=== PATIENT | male | born 1955 | race Caucasian/White ===

== ENCOUNTER 2017-01-05 19:16 | Inpatient (IN) | payer SELFPAY ==
[~2017-01-05] VITALS: Ht 167.6 cm; Wt 54.0 kg
[~2017-01-05 19:16] MED LIST: NO MEDS
[2017-01-05 19:53] VITALS: BP 150/78
--- NOTE | 2017-01-05 20:33 | NUR ---
PT TAKEN TO OF2
--- NOTE | 2017-01-05 20:43 | NUR ---
PT MOVED TO BED 3
--- NOTE | 2017-01-05 20:44 | NUR ---
Dr. Doherty evaluating patient at bedside.
--- NOTE | 2017-01-05 20:45 | NUR ---
61 Y/O M W/C/O PAIN TO L GREAT TOE X 3 DAYS, R/T DIABETIC ULCER. TISSUE AND REDNESS NOTED. DENIES ANY FEVER OR CHILLS. MED HX DM. ER MADE AWARE.
[2017-01-05] MEDS ORDERED: NACL 0.9% 1,000 ML IV SCH (20:52)
[2017-01-05] MEDS ORDERED: INSULIN HUMAN REGULAR 100 UNITS/ML 10 ML VIAL IVP ONE ×2 (20:55→21:25)
[2017-01-05] MEDS ORDERED: AMPICILLIN/SULBACTAM 3 GM VIAL IM ONE (20:55)
[2017-01-05] MEDS ORDERED: AMPICILLIN/SULBACTAM 3 GM in NACL 0.9% 100 ML IV ONE (21:10)
[2017-01-05 21:17] LABS: BLOOD GAS BASE EXCESS 3.1 mmol/L (-2.0-2.0); BLOOD GAS HCO3 27.9 mmol/L; BLOOD GAS PCO2 43.4 mmHg (20-50); BLOOD GAS PH 7.426 (7.35-7.45); BLOOD GAS PO2 78.9 mmHg
[2017-01-05 21:18] LABS: BLOOD GAS O2 SAT% 95.3 % (92.0-98.5)
[2017-01-05 21:36] LABS: BASOPHILS # (AUTO) 0.1 K/uL (0.00-0.22); BASOPHILS % (AUTO) 1.4 % (0.0-2.0); EOSINOPHILS # (AUTO) 0.4 K/uL (0-0.4); EOSINOPHILS % (AUTO) 3.5 % (0.0-4.0); HEMATOCRIT 43.2 % (36-52); HEMOGLOBIN 14.1 g/dL (12.0-18.0); LYMPHOCYTES # (AUTO) 2.7 K/uL (2.0-11.5); LYMPHOCYTES % (AUTO) 26.5 % (20.5-51.1); MEAN CORPUSCULAR HEMOGLOBIN 28 pg (27-31); MEAN CORPUSCULAR HGB CONC 33 g/dL (33-37); MEAN CORPUSCULAR VOLUME 87 fL (80-94); MONOCYTES # (AUTO) 0.6 K/uL (0.8-1.0); MONOCYTES % (AUTO) 5.6 % (1.7-9.3); NEUTROPHILS # (AUTO) 6.3 K/uL (1.8-7.7); PLATELET COUNT (AUTO) 295 K/uL (140-450); RED CELL DISTRIBUTION WIDTH 11.6 % (11.6-13.7); WHITE BLOOD COUNT (AUTO) 10.1 K/uL (4.8-10.8)
[2017-01-05] MEDS ORDERED: METF500T PO (21:46)
[2017-01-05 21:48] LABS: ANION GAP 10.6 (8-16); CALCIUM 10.1 mg/dL (8.5-10.1); CARBON DIOXIDE 33.3 mmol/L (21-32); CREATININE 0.9 mg/dL (0.6-1.3); POTASSIUM 4.9 mmol/L (3.5-5.1)
[2017-01-05 21:55] LABS: ALBUMIN 3.9 g/dL (3.4-5.0); TOTAL BILIRUBIN 0.3 mg/dL (0.0-1.0); TOTAL PROTEIN, SERUM 8.7 g/dL (6.4-8.2)
[2017-01-05 21:57] LABS: PARTIAL THROMBOPLASTIN TIME 26.3 secs (22-35.6); PROTHROMBIN TIME 9.8 secs (10.8-13.4)
[2017-01-05 22:00] LABS: LACTIC ACID 0.6 mmol/L (0.4-2.0)
--- NOTE | 2017-01-05 22:27 | NUR ---
[place] [facility]ited to [place]LEMETRY. Will go to [id number]. Belongings list completed. Report to DAYSI WEBBER.
--- NOTE | 2017-01-05 22:27 | NUR ---
Patient noted to have existing wounds upon arrival to ER. Photos taken of wound and placed in chart. Wound covered with dressing. Physician informed.
--- NOTE | 2017-01-05 22:29 | NUR ---
PT TRASFERRED TO TELEMETRY VIA [employer]. ACCOMPANIED BY RN AND EMT.
--- NOTE | 2017-01-05 22:35 | NUR ---
ADMITTED A PATIENT FROM ER, ACCOMPANIED BY ER NURSE, TRANSPORTED VIA GURNEY. PATIENT IS AAOX4, DENIES PAIN, TELE MONITOR ATTACHED. ON ROOM AIR, HAS NO S/S OF RESPIRATORY DISTRESS/DISCOMFORT NOTED. WOUND ASSESSMENT DONE.IV SITE IS PATENT AND INTACT. ID BAND UPDATED, ROOM ORIENTATION DONE, PLAN OF CARE DISCUSSED, VERBALIZED UNDERSTANDING. SAFETY MEASURES INITIATED, CALL LIGHT WITHIN REACH. WILL CONTINUE TO MONITOR.
[2017-01-05 22:48] VITALS: BP 125/59
[2017-01-05] MEDS ORDERED: ONDANSETRON 4 MG/2 ML VIAL IVP PRN (23:25)
[2017-01-05] MEDS ORDERED: ALBUTEROL 0.083% 2.5 MG/3 ML NEBU INH PRN (23:25)
[2017-01-05] MEDS ORDERED: HYDROcodone/APAP 5/325 MG 1 TAB TAB PO PRN (23:25)
[2017-01-05] MEDS ORDERED: MORPHINE SULFATE 2 MG/ML SYR IVP PRN (23:25)
[2017-01-05] MEDS ORDERED: ZOLPIDEM 5 MG TAB PO PRN (23:25)
[2017-01-05 23:55] LABS: CHOL/HDL RATIO 5.3 (1-4.5); FREE T4 (FREE THYROXINE) 1.19 ng/dL (0.76-1.46); THYROID STIMULATING HORMONE 1.55 uIU/mL (0.34-3.76)
[2017-01-06] VITALS: BP 119/70
--- NOTE | 2017-01-06 01:05 | NUR ---
PT SLEEPING, HAS NO S/S OF RESPIRATORY DISTRESS/DISCOMFORT. CALL LIGHT WITHIN REACH.
[2017-01-06] MEDS: NACL 0.9% 1,000 ML IV SCH ×2 (01:22→16:50)
[2017-01-06] MEDS ORDERED: CLINDAMYCIN 600 MG/4 ML VIAL ONE (01:59)
--- NOTE | 2017-01-06 02:36 | NUR ---
EYES CLOSED, RESTING QUIETLY, BREATHING EVEN AND UNLABORED. IV FLUID INFUSING WELL. CALL LIGHT WITHIN REACH.
[2017-01-06 04:00] VITALS: BP 122/76
--- NOTE | 2017-01-06 04:00 | NUR ---
PT SLEEPING, EASILY AROUSABLE BY HIS NAME. V/S CHECKED AND STABLE. HAS NO COMPLAIN OF PAIN. ON ROOM AIR, NO S/S OF RESPIRATORY DISTRESS/DISCOMFORT NOTED.
[2017-01-06] MEDS: CLINDAMYCIN 600 MG in DEXTROSE 5% 50 ML IV SCH ×3 (04:42→20:14)
--- NOTE | 2017-01-06 07:30 | NUR ---
ENDORSED TO DAY SHIFT NURSE. PT IN STABLE CONDITION.
--- NOTE | 2017-01-06 07:32 | NUR ---
RECEIVED REPORT FROM NIGHT RN. PT RESTING IN BED. AAOX4. NO S/S OF ACUTE DISTRESS. IV SITE PATENT AND INTACT. PT DENIES PAIN. DIABETIC ULCER TO LEFT BIG TOE NOTED AND CARMEL. NO DRAINAGE NOTED. TELE BOX IN PLACE. CALL LIGHT WITHIN REACH. SAFETY MEASURES ENSURED. WILL CONTINUE TO MONITOR.
[2017-01-06 07:46] VITALS: BP 143/79
--- NOTE | 2017-01-06 07:55 | NUR ---
PT REFUSED TO PUT ON SCD'S. PT EDUCATED ON IMPORTANCE OF SCD'S WHEN NOT AMBULATING REGULARLY. PT VERBALIZED UNDERSTANDING, BUT STILL REFUSED.
[2017-01-06] MEDS: metFORMIN 500 MG TAB PO SCH (08:06)
--- NOTE | 2017-01-06 08:33 | NUR ---
ENDORSED PLAN OF CARE TO DAY RN. PT REMAINS IN STABLE CONDITION.
--- NOTE | 2017-01-06 08:50 | NUR ---
patient alert oriented, denies any pain, sitting comfortably in bed.
--- NOTE | 2017-01-06 09:10 | NUR ---
PATIENT HAS BEEN SCREENED AND CATEGORIZED HIGH NUTRITION RISK. PATIENT WILL BE SEEN WITHIN 1-2 DAYS OF ADMISSION. 01/06/17-01/07/[address]
[2017-01-06] MEDS ORDERED: DEXTROSE 50% 50 ML SYR IVP PRN (10:10)
[2017-01-06] MEDS ORDERED: ZOLPIDEM 5 MG TAB PO PRN (10:10)
[2017-01-06] MEDS ORDERED: ATORVASTATIN 20 MG TAB PO SCH (10:30)
[2017-01-06 12:00] VITALS: BP 137/76
[2017-01-06] MEDS: BLOOD GLUCOSE MONITORING 1 DEV DEV FS SCH ×3 (12:03→20:35)
[2017-01-06] MEDS: INSULIN LISPRO SLIDING SCALE 100 UNITS/ML VIAL SUBQ PRN ×3 (12:03→20:15)
--- NOTE | 2017-01-06 12:39 | NUR ---
Excision debridement left great toe done by commercial illustrator at bedside, silvasorbe gel and dressing applied, wound culture collectec. Per MD change dressing daily.
--- NOTE | 2017-01-06 12:39 | NUR ---
01/06/17 RD INITIAL ASSESSMENT COMPLETED PLEASE REFER TO NUTRITION ASSESSMENT UNDER CARE ACTIVITY FOR ESTIMATED NUTRITIONAL NEEDS. 1. CHANGE DIET TO: 75 GM CONSISTENT CARBOHYDRATE DIET 2. ADD VITAMIN C SUPPLEMENT 100-200 MG/DAILY 3. RD TO FOLLOW-UP 2-3 DAYS; HIGH RISK TRAVIS BEASLEY, [place]
[2017-01-06 16:38] VITALS: BP 122/75
[2017-01-06 17:32] LABS: APPEARANCE,URINE CLEAR (CLEAR); BILIRUBIN,URINE NEGATIVE (NEGATIVE); BLOOD, URINE NEGATIVE (NEGATIVE); COLOR,URINE YELLOW (YELLOW); LEUKOCYTE ESTERASE ,URINE NEGATIVE (NEGATIVE); NITRITE, URINE NEGATIVE (NEGATIVE); PROTEIN,URINE NEGATIVE (NEGATIVE); UGLUCOSE 3+ (NEGATIVE); UROBILINOGEN,URINE 0.2 EU/dL (0.2 - 1)
[2017-01-06 17:39] LABS: AMPHETAMINE, URINE NEG. ng/ml (NEG <=1000); BARBITURATE, URINE NEG. ng/ml (NEG <=200); BENZODIAZEPINE, URINE NEG. ng/mL (NEG <=200); CANNABINOID, URINE NEG. ng/mL (NEG <=50); COCAINE, URINE NEG. ng/mL (NEG <=300); OPIATE, URINE NEG. ng/mL (NEG <=2000); PHENCYCLIDINE SCREEN,URINE NEG. ng/mL (NEG <=25)
[2017-01-06 17:42] LABS: BACTERIA,URINE RARE /HPF (None Seen); RBC,URINE 0-3 /HPF (0-5); SQUAMOUS EPITHELIAL CELL,UR 0-3 /LPF (0-3 (FEW)); WBC,URINE 0-3 /HPF (0-5)
--- NOTE | 2017-01-06 19:19 | NUR ---
ENDORSED PLAN OF CARE OF NIGHT RN.
--- NOTE | 2017-01-06 19:20 | NUR ---
RECEIVED PT AWAKE ON BED, DENIES ANY PAIN, VITAL SIGNS STABLE, LEFT GREAT TOE DRESSING DRY AND INTACT, IVF INFUSING WELL, PLAN OF CARE DISCUSSED, SAFETY MEASURES IN PLACE, CALL LIGHT WITHIN REACH.
[2017-01-06 20:00] VITALS: BP 112/66
--- NOTE | 2017-01-06 20:45 | NUR ---
BLOOD SUGAR CHECKED WITH 234 RESULT, COVERAGE GIVEN, SNACK PROVIDED, DUE IV ANTIBIOTIC ADMINISTERED, ALL NEEDS ATTENDED.
--- NOTE | 2017-01-06 23:40 | NUR ---
PT STILL AWAKE, VITAL SIGNS STABLE, AMBIEN PO GIVEN PRN, DENIES ANY PAIN, IVF INFUSING WELL, CONTINUE TO MONITOR CLOSELY.
[2017-01-07] VITALS: BP 120/71
[2017-01-07 04:00] VITALS: BP 116/62
--- NOTE | 2017-01-07 04:00 | NUR ---
SLEEPING, EASILY AROUSABLE, VITAL SIGNS STABLE, DENIES ANY PAIN, MONITORED CLOSELY.
[2017-01-07] MEDS: CLINDAMYCIN 600 MG in DEXTROSE 5% 50 ML IV SCH ×2 (04:19→12:30)
[2017-01-07] MEDS: INSULIN LISPRO SLIDING SCALE 100 UNITS/ML VIAL SUBQ PRN ×2 (05:59→12:30)
--- NOTE | 2017-01-07 06:10 | NUR ---
PT AMBULATED TO BR WITH STANDBY ASSIST, BLOOD SUGAR CHECKED WITH 222 RESULT, COVERAGE GIVEN, DRESSING TO LEFT GREAT TOE DRY AND INTACT, DENIES ANY PAIN, IVF INFUSING WELL.
[2017-01-07 06:18] LABS: BASOPHILS # (AUTO) 0.2 K/uL (0.00-0.22); BASOPHILS % (AUTO) 1.6 % (0.0-2.0); EOSINOPHILS # (AUTO) 0.4 K/uL (0-0.4); EOSINOPHILS % (AUTO) 3.6 % (0.0-4.0); HEMATOCRIT 37.4 % (36-52); LYMPHOCYTES % (AUTO) 30.9 % (20.5-51.1); MEAN CORPUSCULAR HEMOGLOBIN 29 pg (27-31); MEAN CORPUSCULAR HGB CONC 35 g/dL (33-37); MEAN CORPUSCULAR VOLUME 84 fL (80-94); MONOCYTES # (AUTO) 0.9 K/uL (0.8-1.0); NEUTROPHILS # (AUTO) 5.3 K/uL (1.8-7.7); NEUTROPHILS % (AUTO) 54.9 % (42.2-75.2); PLATELET COUNT (AUTO) 279 K/uL (140-450); RED BLOOD CELL COUNT(AUTO) 4.45 MIL/uL (4.20-6.10); RED CELL DISTRIBUTION WIDTH 11.6 % (11.6-13.7); WHITE BLOOD COUNT (AUTO) 9.8 K/uL (4.8-10.8)
[2017-01-07] MEDS: BLOOD GLUCOSE MONITORING 1 DEV DEV FS SCH ×2 (06:34→11:53)
[2017-01-07] MEDS: NACL 0.9% 1,000 ML IV SCH (07:02)
--- NOTE | 2017-01-07 07:10 | NUR ---
PT AWAKE, NO SIGNS OF DISTRESS, REPORT GIVEN TO KARINE TAVAREZ FOR CONTINUITY OF CARE.
--- NOTE | 2017-01-07 07:10 | NUR ---
RECEIVED PATIENT REPORT AT BEDSIDE. PATIENT AWAKE, ALERT, AND ORIENTED. NO S/S OF DISTRESS NOTED. NO C/O PAIN AT THIS TIME. DRESSING NOTED TO THE LEFT BIG TOE. DRESSING CLEAN, DRY AND INTACT. IV LINE NOTED TO THE LEFT FOREARM WITH IVF INFUSING WELL. PATIENT ON TELE MONITORING. BED LOWERED WITH CALL LIGHT WITHIN REACH. WILL CONTINUE TO MONITOR
[2017-01-07 07:17] LABS: ANION GAP 11.5 (8-16); CALCIUM 8.9 mg/dL (8.5-10.1); CARBON DIOXIDE 28.5 mmol/L (21-32); CREATININE 0.8 mg/dL (0.6-1.3)
[2017-01-07 07:29] LABS: MAGNESIUM 1.8 mg/dL (1.8-2.4); PHOSPHORUS 3.5 mg/dL (2.5-4.9)
[2017-01-07 07:48] VITALS: BP 128/76
[2017-01-07] MEDS: metFORMIN 500 MG TAB PO SCH (08:44)
[2017-01-07] MEDS ORDERED: ATORVASTATIN 20 MG TAB PO SCH (09:00)
[2017-01-07] MEDS ORDERED: ASCORBIC ACID 500 MG TAB PO SCH (09:00)
--- NOTE | 2017-01-07 09:00 | NUR ---
ADMINISTERED DUE MEDS. PATIENT TOLERATED WELL
[2017-01-07 11:17] LABS: HEMOGLOBIN A1C 14.2 % (4.8-5.6); T4 (THYROXINE) 6.5 ug/dL (4.5 - 12.0)
[2017-01-07 12:00] VITALS: BP 129/79
--- NOTE | 2017-01-07 13:30 | NUR ---
DRESSING ON THE LEFT BIG TOE CHANGED. PICTURES TAKEN. PICTURE FILED IN THE CHART
[2017-01-07] MEDS ORDERED: CLIN300C2 PO (15:47)
[2017-01-07] MEDS ORDERED: ASPI81EC98 PO (15:47)
[2017-01-07] MEDS ORDERED: ATOR20TA40 PO (15:47)
[2017-01-07] MEDS ORDERED: LACT1.4C PO (15:47)
[2017-01-07] MEDS ORDERED: METF1000 PO (15:56)
[2017-01-07] MEDS ORDERED: GLIP5TER PO (15:57)
[2017-01-07 16:00] VITALS: BP 114/72
[2017-01-07] MEDS ORDERED: PNEUMOCOCCAL VACCINE 23 MCG/0.5 ML VIAL IMVAC SCH (16:05)
--- NOTE | 2017-01-07 16:41 | NUR ---
PATIENT DISCHARGED TO HOME. DISCHARGE INSTRUCTIONS AND DISCHARGE PRESCRIPTIONS GIVEN. PATIENT VERBALIZED UNDERSTANDING. IV LINE DISCONTINUED, TELE LEADS TAKEN OFF. PATIENT SIGNED ALL OF HIS DISCHARGE PAPERS. PATIENT LEFT WITH ALL HIS BELONGINGS AND DISCHARGE PAPERS. PATIENT LEFT IN STABLE CONDITION
== END 2017-01-07 16:50 | disposition home or self-care (01) | DRG 624 ==
LOC: MED 19:16 → MTU 22:09
PROVIDERS: ADMIT Family Medicine; ATTEND Family Medicine
PROC: 0JBR0ZZ Excision of Left Foot Subcutaneous Tissue and Fascia, Open Approach (ICD-10-PCS; principal; 2017-01-06)
PROC: 3E0234Z Introduction of Serum, Toxoid and Vaccine into Muscle, Percutaneous Approach (ICD-10-PCS; 2017-01-07)
DX: E11.621 Type 2 diabetes mellitus with foot ulcer (principal); E11.40 Type 2 diabetes mellitus with diabetic neuropathy, unspecified; E11.65 Type 2 diabetes mellitus with hyperglycemia; L97.529 Non-pressure chronic ulcer of other part of left foot with unspecified severity; N17.0 Acute kidney failure with tubular necrosis; E78.5 Hyperlipidemia, unspecified; E78.2 Mixed hyperlipidemia; I70.209 Unspecified atherosclerosis of native arteries of extremities, unspecified extremity; I10 Essential (primary) hypertension; Z83.3 Family history of diabetes mellitus; Z82.3 Family history of stroke; Z23 Encounter for immunization
CPT/HCPCS: 36415; 36600; 71010; 73630; 80048; 80053; 80305; 81001; 82550; 82553; 82803; 82948; 83036; 83605; 83735; 83874; 83880; 84100; 84436; 84439; 84443; 84479; 84484; 85025; 85610; 85730; 87040; 87070; 87075; 87081; 87086; 87186; 90471; 90715; 90732; 93005; 93925; 93970; 96361; 96374; 96375; 99285; J0295; J1815; J3490; J7030; J7060; Q0092

== ENCOUNTER 2017-03-02 21:41 | Emergency (ER) | payer OTHER ==
[~2017-03-02] VITALS: Ht 167.6 cm; Wt 58.5 kg
[~2017-03-02 21:41] MED LIST changes: +ASPI81EC98 PO; +ATOR20TA40 PO; +CLIN300C2 PO; +GLIP5TER PO; +LACT1.4C PO; +METF1000 PO; -NO MEDS
[2017-03-02 21:44] VITALS: BP 141/77
--- NOTE | 2017-03-02 22:18 | NUR ---
TO ER OF1
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
[2017-03-02] MEDS ORDERED: HYDROcodone/APAP 5/325 MG 1 TAB TAB PO ONE (22:40)
[2017-03-02] MEDS ORDERED: KETOROLAC 30 MG/ML VIAL IM ONE (22:40)
--- NOTE | 2017-03-02 22:48 | NUR ---
PT TAKEN TO CT VIA W/C ACCOMPANIED BY EDUCATIONAL ASSISTANT TEACHER.
--- NOTE | 2017-03-03 00:05 | NUR ---
Patient discharged with v/s stable. Written and verbal after care instructions given and explained. Patient alert, oriented and verbalized understanding of instructions. Ambulatory with steady gait. All questions addressed prior to discharge. ID band removed. Patient advised to follow up with PMD. Rx of NORCO 5*325 MG, NAPROSYN 500 MG given. Patient educated on indication of medication including possible reaction and side effects. Opportunity to ask questions provided and answered.
[2017-03-03 00:22] VITALS: BP 126/72
== END 2017-03-03 00:05 | disposition home or self-care (01) ==
LOC: MED 21:41
DX: S16.1XXA Strain of muscle, fascia and tendon at neck level, initial encounter (principal); E11.9 Type 2 diabetes mellitus without complications; V43.62XA Car passenger injured in collision with other type car in traffic accident, initial encounter; Y93.I9 Activity, other involving external motion; Y92.488 Other paved roadways as the place of occurrence of the external cause; Y99.8 Other external cause status
CPT/HCPCS: 72125; 96372; 99284; J1885

== ENCOUNTER 2017-05-27 16:01 | Inpatient (IN) | payer OTHER ==
[~2017-05-27] VITALS: Ht 167.6 cm; Wt 57.6 kg
[2017-05-27 16:09] VITALS: BP 118/63
--- NOTE | 2017-05-27 16:24 | NUR ---
PATIENT TO OF3 AT THIS TIME.
--- NOTE | 2017-05-27 16:25 | NUR ---
PATIENT PRESENTS TO ED WITH C/O LEFT FOOT PAIN . PT STATES THE PAIN STARTED GRADUALLY OVER THE PAST WEEK AND HIS NOTED HIS 5TH TOE WAS TURNING BLACK THIS AM . DENIES N/V/D; EXTENSIVE ECCHYMOSIS NOTED TO LEFT FOOT, W/5TH TOE DEEP PURPLE/BLACK; AAOX4 WITH EVEN AND STEADY GAIT; LUNGS CLEAR BL; HR EVEN AND REGULAR; PT DENIES ANY FEVER, CP, SOB, OR COUGH AT THIS TIME; PATIENT STATES PAIN OF 10/10 AT THIS TIME; VSS; PATIENT POSITIONED FOR COMFORT; HOB ELEVATED; BEDRAILS UP X2; BED DOWN. ER MD MADE AWARE OF PT STATUS.
[2017-05-27] MEDS ORDERED: NACL 0.9% 1,000 ML IV ONE ×2 (17:22→18:10)
[2017-05-27] MEDS ORDERED: PIPERACILLIN/TAZOBACTAM 3.375 GM in DEXTROSE 5% 50 ML IV ONE (17:25)
[2017-05-27] MEDS ORDERED: CLINDAMYCIN 600 MG in DEXTROSE 5% 50 ML IV ONE (17:25)
[2017-05-27 17:44] LABS: HEMATOCRIT 38.2 % (36-52); HEMOGLOBIN 12.6 g/dL (12.0-18.0); MEAN CORPUSCULAR HEMOGLOBIN 28 pg (27-31); MEAN CORPUSCULAR HGB CONC 33 g/dL (33-37); MEAN CORPUSCULAR VOLUME 85 fL (80-94); PLATELET COUNT (AUTO) 317 K/uL (140-450); RED CELL DISTRIBUTION WIDTH 11.6 % (11.6-13.7); WHITE BLOOD COUNT (AUTO) 18.2 K/uL (4.8-10.8)
[2017-05-27] MEDS ORDERED: CLINDAMYCIN 600 MG/4 ML VIAL ONE (17:51)
[2017-05-27] MEDS ORDERED: PIPERACILLIN/TAZOBACTAM 3.375 GM VIAL IV ONE (17:51)
[2017-05-27 17:55] LABS: PROTHROMBIN TIME 10.7 secs (10.8-13.4)
[2017-05-27 18:03] LABS: LYMPHOCYTES % (MANUAL) 12 % (20-46); MONOCYTES % (MANUAL) 4 % (5-12)
[2017-05-27 18:07] LABS: ALBUMIN 3.2 g/dL (3.4-5.0); CARBON DIOXIDE 28.1 mmol/L (21-32); POTASSIUM 4.1 mmol/L (3.5-5.1); TOTAL BILIRUBIN 0.5 mg/dL (0.0-1.0)
[2017-05-27] MEDS ORDERED: DOCUSATE SODIUM 100 MG GELCAP PO PRN (18:30)
[2017-05-27] MEDS ORDERED: ONDANSETRON 4 MG/2 ML VIAL IM/IVP PRN (18:30)
[2017-05-27] MEDS ORDERED: MORPHINE SULFATE 2 MG/ML SYR IVP PRN (18:30)
[2017-05-27] MEDS ORDERED: HYDROcodone/APAP 7.5/325 MG 1 TAB PO PRN (18:30)
[2017-05-27] MEDS ORDERED: DEXTROSE 50% 50 ML SYR IVP PRN (19:00)
[2017-05-27 19:30] LABS: CHOL/HDL RATIO 3.9 (1-4.5); FREE T4 (FREE THYROXINE) 1.16 ng/dL (0.76-1.46); MAGNESIUM 1.8 mg/dL (1.8-2.4); PHOSPHORUS 3.2 mg/dL (2.5-4.9); THYROID STIMULATING HORMONE 0.92 uIU/mL (0.34-3.74)
--- NOTE | 2017-05-27 19:30 | NUR ---
RECEIVED REPORT FROM DAY SHIFT RN AT PT BEDSIDE FOR CONTINUITY OF CARE. PT JUST ADMITTED TO UNIT. PATIENT IS AAOX4, ON ROOM AIR, AND ICELANDIC SPEAKING. NO SIGNS AND SYMPTOMS OF RESPIRATORY DISTRESS NOTED AT THIS TIME, LUNGS ARE CLEAR. HAS 20 GAUGE IV, ASYMPTOMATIC, TO RIGHT FA INFUSING NS ON AN OPEN LINE, LEFT LEG HAS OPEN WOUNDS ON IT AND ERYTHEMA. ORIENTED PT TO ROOM, RESTROOM, BOARD, LIGHTS, TV, AND CALL LIGHT. UPDATED BOARD, DISCUSSED PLAN OF CARE WITH PT IN ICEL[place], PT VERBALIZED UNDERSTANDING. PT IN STABLE CONDITION. BED IN LOW POSITION, CALL LIGHT WITHIN REACH. WILL CONTINUE TO MONITOR.
[2017-05-27 20:00] VITALS: BP 147/75
[2017-05-27] MEDS: ATORVASTATIN 20 MG TAB PO SCH (20:56)
[2017-05-27] MEDS: INSULIN LISPRO SLIDING SCALE 100 UNITS/ML VIAL SUBQ PRN (21:00)
--- NOTE | 2017-05-27 21:05 | NUR ---
ADMINISTERED SCHEDULED MEDICATIONS AND INSULIN FOR BLOOD SUGAR OF 342. PT TOLERATED WELL. PT IN STABLE CONDITION, NO SIGNS OF DISTRESS NOTED. BED IN LOW POSITION, CALL LIGHT WITHIN REACH. WILL CONTINUE TO MONITOR.
[2017-05-27] MEDS: BLOOD GLUCOSE MONITORING 1 DEV DEV FS SCH (21:06)
[2017-05-27] MEDS: NACL 0.9% 1,000 ML IV SCH (22:00)
--- NOTE | 2017-05-27 23:15 | NUR ---
PT STATES HE WANTS THE PNA VACCINE AND THE FLU VACCINE WHEN DISCHARGED. NO SIGNS AND SYMPTOMS OF DISTRESS NOTED AT THIS TIME. PT IN STABLE CONDITION. BED IN LOW POSITION, CALL LIGHT WITHIN REACH. WILL CONTINUE TO MONITOR.
[2017-05-28] VITALS: BP 122/65
[2017-05-28] MEDS: PIPER/TAZO 3.375GM/D5W PREMIX 50 ML IV SCH ×4 (00:55→17:32)
[2017-05-28] MEDS ORDERED: PIPERACILLIN/TAZOBACTAM 3.375 GM VIAL IV ONE ×2 (01:00→05:47)
--- NOTE | 2017-05-28 01:00 | NUR ---
VITALS WNL. NO SIGNS AND SYMPTOMS OF DISTRESS NOTED AT THIS TIME. PT IN STABLE CONDITION. BED IN LOW POSITION, CALL LIGHT WITHIN REACH. WILL CONTINUE TO MONITOR.
--- NOTE | 2017-05-28 02:45 | NUR ---
SPOKE TO DR. ARRINGTON ABOUT ORDERING A FNS CONSULT AND A WOUND CONSULT. AGREED AND SAID HE'D PLACE ORDERS.
[2017-05-28 04:00] VITALS: BP 125/67
[2017-05-28] MEDS: NACL 0.9% 1,000 ML IV SCH ×2 (04:26→13:45)
--- NOTE | 2017-05-28 04:44 | NUR ---
PT DENIES PAIN, VITAL SIGNS WNL. PT IN STABLE CONDITION, NO SIGNS OF DISTRESS NOTED. BED IN LOW POSITION, CALL LIGHT WITHIN REACH. WILL CONTINUE TO MONITOR.
[2017-05-28] MEDS ORDERED: CLINDAMYCIN 600 MG in DEXTROSE 5% 50 ML IV SCH (05:00)
[2017-05-28] MEDS ORDERED: CLINDAMYCIN 600 MG/4 ML VIAL ONE (05:34)
--- NOTE | 2017-05-28 06:00 | NUR ---
PT AWAKE AND ALERT, IN STABLE CONDITION. NO SIGNS OF DISTRESS NOTED. BED IN LOW POSITION, CALL LIGHT WITHIN REACH. WILL CONTINUE TO MONITOR.
[2017-05-28 07:00] LABS: APPEARANCE,URINE CLEAR (CLEAR); BILIRUBIN,URINE NEGATIVE (NEGATIVE); BLOOD, URINE NEGATIVE (NEGATIVE); COLOR,URINE YELLOW (YELLOW); LEUKOCYTE ESTERASE ,URINE NEGATIVE (NEGATIVE); NITRITE, URINE NEGATIVE (NEGATIVE); UGLUCOSE 2+ (NEGATIVE)
[2017-05-28 07:08] LABS: BARBITURATE, URINE NEG. ng/ml (NEG <=200); BENZODIAZEPINE, URINE NEG. ng/mL (NEG <=200); CANNABINOID, URINE NEG. ng/mL (NEG <=50); COCAINE, URINE NEG. ng/mL (NEG <=300); OPIATE, URINE NEG. ng/mL (NEG <=2000); PHENCYCLIDINE SCREEN,URINE NEG. ng/mL (NEG <=25)
[2017-05-28 07:17] LABS: T4 (THYROXINE) 6.8 ug/dL (4.5-12.0)
[2017-05-28] MEDS: INSULIN LISPRO SLIDING SCALE 100 UNITS/ML VIAL SUBQ PRN ×3 (07:29→16:46)
[2017-05-28] MEDS: BLOOD GLUCOSE MONITORING 1 DEV DEV FS SCH ×4 (07:30→20:45)
--- NOTE | 2017-05-28 07:30 | NUR ---
ENDORSED PT TO DAY SHIFT NURSE FOR CONTINUITY OF CARE. PT IN STABLE CONDITION.
--- NOTE | 2017-05-28 07:30 | NUR ---
RECEIVED REPORT FROM NIGHT NURSE AT PT BEDSIDE. PATIENT IS RESTING IN BED. ALERT AND ORIENTED FOLLOWS COMMANDS PERSIAN SPEAKING. IV SITE PATENT AND INTACT. CALL LIGHT WITHIN REACH. LEFT FOOT WOUND PRESSURE AREAS, DRY AND INTACT AT THIS TIME. PODIATRY TO SEE PATIENT. PATIENT SEEN BY PCP, NPO STATUS AT THIS TIME. DENIES PAIN AT THIS TIME.
[2017-05-28 07:36] LABS: RBC,URINE 0-5 (RARE) /HPF (0-5); WBC,URINE 0-5 (RARE) /HPF (0-5)
[2017-05-28 08:00] VITALS: BP 114/63
--- NOTE | 2017-05-28 08:08 | NUR ---
PATIENT HAS BEEN SCREENED AND CATEGORIZED HIGH NUTRITION RISK. PATIENT WILL BE SEEN WITHIN 1-2 DAYS OF ADMISSION. 05/28/17-05/29/[address]
--- NOTE | 2017-05-28 08:40 | NUR ---
SEEN PT. AND DR. CALDERON ALREADY AT BED SIDE TO EXAM PT. ASSIST DR FOR WOUND DRESSING CHANGE, WOUND CULTURE OBTATINE. PER THAT HE WILL BE IN TOMORROW TO DO DRESSING CHANGE. WILL VISIT PT. NEXT TIME FOR COMPLETION OF WOUND ASSESSMENT. PRIMARY RN NOTIFY.
[2017-05-28] MEDS ORDERED: HYDROmorphone PFS 2 MG/ML SYR IVP PRN (09:00)
[2017-05-28] MEDS: ASCORBIC ACID 500 MG TAB PO SCH ×2 (09:25→20:46)
[2017-05-28] MEDS: LACTOBACILLUS RHAMNOSUS GG 1 EACH CAP PO SCH (09:25)
[2017-05-28] MEDS: ECOTRIN 81 MG TABEC PO SCH (09:25)
[2017-05-28] MEDS: metFORMIN 500 MG TAB PO SCH ×2 (09:25→16:42)
--- NOTE | 2017-05-28 09:25 | NUR ---
PATIENT PREMEDICATED FOR PAIN, PREPROCEDURE WITH DILAUDID 2MG IVP. PATIENT RESTING IN BED. NO S/S OF ACUTE DISTRESS NOTED. DR. CALDERON AT BEDSIDE FOR I&D PROCEDURE.
[2017-05-28] MEDS: glipiZIDE ER 5 MG TABER PO SCH (09:26)
--- NOTE | 2017-05-28 09:45 | NUR ---
PATIENT HAD INCISION AND DRAINAGE OF LEFT FOOT BY DR. CALDERON AT BEDSIDE. DRESSING CLEAN DRY AND INTACT. PATIENT RESTING IN BED, NO S/S OF ACUTE DISTRESS NOTED.
--- NOTE | 2017-05-28 10:30 | NUR ---
PATIENT HAD EPISODE OF NAUSEA WITH VOMITING. PATIENT RESTING IN BED AT THIS TIME. CALL LIGHT WITHIN REACH.
--- NOTE | 2017-05-28 11:06 | NUR ---
05/28/17 RD INITIAL ASSESSMENT COMPLETED PLEASE REFER TO NUTRITION ASSESSMENT UNDER CARE ACTIVITY FOR ESTIMATED NUTRITIONAL NEEDS. 1. CONTINUE NPO DIET 2. WHEN MEDICALLY FEASIBLE, INITIATE CLEAR LIQUID DIET AND ADVANCE TO 60 GRAMS CONSISTENT CARBOHYDRATE DIET TOLERATED 3. PROVIDE NUTRITION EDUCATION NEEDED 4. VITAMIN C FOR WOUND HEALING 500 MG, 2 TIMES A DAY 5. RD TO FOLLOW UP WITHIN 2-3 DAYS; HIGH RISK TRAVIS BEASLEY RD
[2017-05-28] MEDS: LEVOFLOXACIN 750 MG/D5W PREMIX 150 ML IV SCH (11:19)
[2017-05-28 12:00] VITALS: BP 137/72
[2017-05-28] MEDS ORDERED: MORPHINE SULFATE 2 MG/ML SYR IVP PRN (13:00)
--- NOTE | 2017-05-28 13:24 | NUR ---
FAXED INITIAL REVIEW TO [facility] [phone] PHONE CHERRY [phone]
--- NOTE | 2017-05-28 13:40 | NUR ---
PATIENT SEEN BY PCP AT BEDSIDE. MADE AWARE OF PERSISTENT NAUSEA WITH VOMITING AFTER ZOFRAN ADMINISTRATION. NEW ORDERS RECEIVED FOR REGLAN. WILL MEDICATED ORDERED. CONTINUE TO MONITOR.
[2017-05-28] MEDS ORDERED: METOCLOPRAMIDE 10 MG/2 ML INJ VIAL IVP PRN (13:45)
--- NOTE | 2017-05-28 14:10 | NUR ---
ASSISTED PT IN AMBULATION TO BATHROOM WITH MODERATE ASSIST.
[2017-05-28 16:00] VITALS: BP 99/58
--- NOTE | 2017-05-28 17:00 | NUR ---
PATIENT SLEEPING. NO S/S OF ACUTE DISTRESS NOTED. IV SITE PATENT AND INTACT.
--- NOTE | 2017-05-28 19:32 | NUR ---
ENDORSED PLAN OF CARE TO RN GERTRUDE AT PT BEDSIDE. NO S/S OF ACUTE DISTRESS NOTED.
--- NOTE | 2017-05-28 19:35 | NUR ---
RECEIVED REPORT FROM DAY SHIFT RN AT PT BEDSIDE FOR CONTINUITY OF CARE. PATIENT IS AAOX4, ON ROOM AIR, AND IRISH SPEAKING. NO SIGNS AND SYMPTOMS OF RESPIRATORY DISTRESS NOTED AT THIS TIME, LUNGS ARE CLEAR. HAS 20 GAUGE IV, ASYMPTOMATIC, TO RIGHT FA INFUSING NS ON AN OPEN LINE, LEFT LEG HAS OPEN WOUNDS ON IT AND ERYTHEMA. UPDATED BOARD, DISCUSSED PLAN OF CARE WITH PT IN IRISH, PT VERBALIZED UNDERSTANDING. PT IN STABLE CONDITION. BED IN LOW POSITION, CALL LIGHT WITHIN REACH. WILL CONTINUE TO MONITOR.
[2017-05-28 20:00] VITALS: BP 110/62
[2017-05-28] MEDS: PANTOPRAZOLE 40 MG TABEC PO SCH (20:00)
[2017-05-28] MEDS: ATORVASTATIN 20 MG TAB PO SCH (20:47)
[2017-05-28] MEDS: INSULIN DETEMIR 100 UNITS/ML 10 ML VIAL SUBQ SCH (20:58)
--- NOTE | 2017-05-28 21:00 | NUR ---
PT REFUSED LEVEMIR INSULIN BECAUSE BLOOD SUGAR WAS 104. EXPLAINED TO PT LEVEMIR TAKES LONGER TO ACT THAN HUMALOG BUT PT STATED HE HAS BEEN NAUSEOUS AND NOT EATING AND HE DOESN'T THINK HE WILL EAT AND PREFERS NOT TO RISK IT. PT IN STABLE CONDITION. BED IN LOW POSITION, CALL LIGHT WITHIN REACH. WILL CONTINUE TO MONITOR.
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
[2017-05-28] MEDS ORDERED: PANTOPRAZOLE 40 MG TABEC PO SCH (22:10)
--- NOTE | 2017-05-28 22:41 | NUR ---
ADMINISTERED PROTONIX, PT TOLERATED WELL. PT IN STABLE CONDITION, NO SIGNS OF DISTRESS NOTED. BED IN LOW POSITION CALL LIGHT WITHIN REACH. WILL CONTINUE TO MONITOR.
[2017-05-29] VITALS: BP 131/58
[2017-05-29] MEDS: NACL 0.9% 1,000 ML IV SCH ×3 (00:54→17:09)
[2017-05-29] MEDS: PIPER/TAZO 3.375GM/D5W PREMIX 50 ML IV SCH ×4 (00:54→17:06)
[2017-05-29 04:00] VITALS: BP 135/74
[2017-05-29] MEDS: BLOOD GLUCOSE MONITORING 1 DEV DEV FS SCH ×4 (06:33→20:57)
[2017-05-29 06:56] LABS: ANION GAP 8.8 (8-16); CARBON DIOXIDE 31.5 mmol/L (21-32); CREATININE 0.8 mg/dL (0.7-1.3); POTASSIUM 3.3 mmol/L (3.5-5.1)
[2017-05-29 07:01] LABS: MAGNESIUM 1.7 mg/dL (1.8-2.4); PHOSPHORUS 2.9 mg/dL (2.5-4.9)
--- NOTE | 2017-05-29 07:15 | NUR ---
ENDORSED PT TO DAY SHIFT NURSE FOR CONTINUITY OF CARE, PT IN STABLE CONDITION WITHOUT SIGNS OF DISTRESS.
--- NOTE | 2017-05-29 07:17 | NUR ---
RECEIVED BEDSIDE REPORT FROM NIGHT RN. PT RESTING IN BED. AAOX4. NO S/S OF ACUTE DISTRESS. PT STATES PAIN 01/23 BUT REFUSES PAIN MEDICATION AT THIS TIME. PT REPOSITIONED FOR COMFORT. IV SITE PATENT AND INTACT. PLAN OF CARE DISCUSSED. PT VERBALIZED UNDERSTANDING. CALL LIGHT WITHIN REACH. SAFETY MEASURES ENSURED. WILL CONTINUE TO MONITOR.
[2017-05-29 07:24] LABS: BASOPHILS # (AUTO) 0.3 K/uL (0.00-0.22); BASOPHILS % (AUTO) 2.6 % (0.0-2.0); EOSINOPHILS # (AUTO) 0.1 K/uL (0-0.4); EOSINOPHILS % (AUTO) 1.1 % (0.0-4.0); HEMATOCRIT 34.9 % (36-52); HEMOGLOBIN 11.8 g/dL (12.0-18.0); LYMPHOCYTES # (AUTO) 2.3 K/uL (2.0-11.5); LYMPHOCYTES % (AUTO) 16.9 % (20.5-51.1); MEAN CORPUSCULAR HEMOGLOBIN 29 pg (27-31); MEAN CORPUSCULAR HGB CONC 34 g/dL (33-37); MEAN CORPUSCULAR VOLUME 86 fL (80-94); MONOCYTES # (AUTO) 1.2 K/uL (0.8-1.0); MONOCYTES % (AUTO) 8.9 % (1.7-9.3); NEUTROPHILS # (AUTO) 9.4 K/uL (1.8-7.7); NEUTROPHILS % (AUTO) 70.5 % (42.2-75.2); PLATELET COUNT (AUTO) 312 K/uL (140-450); RED BLOOD CELL COUNT(AUTO) 4.07 MIL/uL (4.20-6.10); RED CELL DISTRIBUTION WIDTH 11.5 % (11.6-13.7); WHITE BLOOD COUNT (AUTO) 13.3 K/uL (4.8-10.8)
[2017-05-29 07:48] VITALS: BP 134/69
--- NOTE | 2017-05-29 08:15 | NUR ---
AM MEDICATIONS GIVEN WITH EDUCATION. PT VERBALIZED UNDERSTANDING. CALL LIGHT WITHIN REACH. SAFETY MEASURES ENSURED. WILL CONTINUE TO MONITOR.
[2017-05-29] MEDS: LACTOBACILLUS RHAMNOSUS GG 1 EACH CAP PO SCH (08:26)
[2017-05-29] MEDS: metFORMIN 500 MG TAB PO SCH ×2 (08:26→17:06)
[2017-05-29] MEDS: ECOTRIN 81 MG TABEC PO SCH (08:27)
[2017-05-29] MEDS: glipiZIDE ER 5 MG TABER PO SCH (08:27)
[2017-05-29] MEDS: ASCORBIC ACID 500 MG TAB PO SCH ×2 (08:28→21:01)
[2017-05-29] MEDS ORDERED: MAG SULF 2000 MG/WATER PREMIX 50 ML IV SCH ×3 (08:33→12:36)
[2017-05-29] MEDS ORDERED: POTASSIUM CHLORIDE 40 MEQ, LIDOCAINE 1% 25 MG in NACL 0.9% 250 ML IV SCH ×2 (09:00→12:00)
[2017-05-29] MEDS: LEVOFLOXACIN 750 MG/D5W PREMIX 150 ML IV SCH (09:22)
[2017-05-29] MEDS: PANTOPRAZOLE 40 MG TABEC PO SCH (11:39)
--- NOTE | 2017-05-29 11:48 | NUR ---
PT RESTING IN BED. NO S/S OF ACUTE DISTRESS. PT STATES PAIN 6/10 BUT REFUSES PAIN MEDICATIONS. CALL LIGHT WITHIN REACH. SAFETY MEASURES ENSURED. WILL CONTINUE TO MONITOR.
[2017-05-29 12:00] VITALS: BP 140/76
--- NOTE | 2017-05-29 12:00 | NUR ---
PT REFUSED INSULIN AT THIS TIME STATING HE WASN'T GOING TO EAT MUCH LUNCH.
--- NOTE | 2017-05-29 14:30 | NUR ---
PT RESTING IN BED. NO S/S OF ACUTE DISTRESS. PT STATES PAIN 01/23. PT REFUSES PAIN MEDICATION. WILL CONTINUE TO MONITOR.
[2017-05-29 16:00] VITALS: BP 113/48
--- NOTE | 2017-05-29 16:10 | NUR ---
PT RESTING IN BED. NO S/S OF ACUTE DISTRESS. PT STATES PAIN 01/23. PT REFUSED PAIN MEDICATION AT THIS TIME. WILL CONTINUE TO MONITOR.
[2017-05-29] MEDS: INSULIN LISPRO SLIDING SCALE 100 UNITS/ML VIAL SUBQ PRN (18:15)
--- NOTE | 2017-05-29 19:11 | NUR ---
ENDORSED PLAN OF CARE TO NIGHT RN. PT REMAINS STABLE.
--- NOTE | 2017-05-29 19:12 | NUR ---
RECEIVED PATIENT REPORT FROM MORNING NURSE. PATIENT IS AWAKE, ALERT, AND ORIENTED. NO SIGNS AND SYMPTOMS OF DISTRESS NOTED, NO COMPLAINTS OF PAIN AT THIS TIME. PATIENT'S SON IS PRESENT AT BEDSIDE. IV SITE NOTED ON RIGHT FOREARM. IVF INFUSING WELL. BED IN LOWEST POSITION, SIDE RAILS UP AND CALL LIGHT WITHIN REACH.
[2017-05-29 20:00] VITALS: BP 124/68
[2017-05-29] MEDS: INSULIN DETEMIR 100 UNITS/ML 10 ML VIAL SUBQ SCH (20:58)
[2017-05-29] MEDS: ACETAMINOPHEN 325 MG TAB PO PRN (21:01)
[2017-05-29] MEDS: ATORVASTATIN 20 MG TAB PO SCH (21:01)
--- NOTE | 2017-05-29 22:00 | NUR ---
CHECKED ON PATIENT, PATIENT IS ASLEEP. NO SIGNS AND SYMPTOMS OF DISTRESS NOTED. BED IN LOWEST POSITION. SIDE RAILS UP AND CALL LIGHT WITHIN REACH.
[2017-05-30] VITALS: BP 122/71
--- NOTE | 2017-05-30 | NUR ---
CHECKED ON PATIENT, PATIENT IS ASLEEP. NO SIGNS AND SYMPTOMS OF DISTRESS NOTED. BED IN LOWEST POSITION. SIDE RAILS UP AND CALL LIGHT WITHIN REACH.
[2017-05-30] MEDS: PIPER/TAZO 3.375GM/D5W PREMIX 50 ML IV SCH ×5 (00:16→23:32)
--- NOTE | 2017-05-30 03:30 | NUR ---
CHECKED ON PATIENT, PATIENT IS ASLEEP. NO SIGNS AND SYMPTOMS OF DISTRESS NOTED. BED IN LOWEST POSITION. SIDE RAILS UP AND CALL LIGHT WITHIN REACH.
[2017-05-30 04:00] VITALS: BP 140/79
[2017-05-30] MEDS: NACL 0.9% 1,000 ML IV SCH ×2 (05:59→17:03)
[2017-05-30] MEDS: BLOOD GLUCOSE MONITORING 1 DEV DEV FS SCH ×4 (06:31→20:26)
[2017-05-30 06:40] LABS: BASOPHILS # (AUTO) 0.2 K/uL (0.00-0.22); BASOPHILS % (AUTO) 1.3 % (0.0-2.0); EOSINOPHILS # (AUTO) 0.3 K/uL (0-0.4); EOSINOPHILS % (AUTO) 2.1 % (0.0-4.0); HEMATOCRIT 35.7 % (36-52); HEMOGLOBIN 12.2 g/dL (12.0-18.0); LYMPHOCYTES # (AUTO) 2.5 K/uL (2.0-11.5); LYMPHOCYTES % (AUTO) 19.3 % (20.5-51.1); MEAN CORPUSCULAR HEMOGLOBIN 29 pg (27-31); MEAN CORPUSCULAR HGB CONC 34 g/dL (33-37); MEAN CORPUSCULAR VOLUME 84 fL (80-94); MONOCYTES # (AUTO) 1.3 K/uL (0.8-1.0); MONOCYTES % (AUTO) 10.4 % (1.7-9.3); NEUTROPHILS # (AUTO) 8.5 K/uL (1.8-7.7); NEUTROPHILS % (AUTO) 66.9 % (42.2-75.2); PLATELET COUNT (AUTO) 335 K/uL (140-450); RED BLOOD CELL COUNT(AUTO) 4.23 MIL/uL (4.20-6.10); WHITE BLOOD COUNT (AUTO) 12.8 K/uL (4.8-10.8)
[2017-05-30 06:55] LABS: MAGNESIUM 1.9 mg/dL (1.8-2.4); PHOSPHORUS 3.2 mg/dL (2.5-4.9)
[2017-05-30 07:00] LABS: ANION GAP 7.8 (8-16); CARBON DIOXIDE 31.6 mmol/L (21-32); CREATININE 0.9 mg/dL (0.7-1.3); POTASSIUM 3.4 mmol/L (3.5-5.1)
--- NOTE | 2017-05-30 07:29 | NUR ---
PATIENT REPORT GIVEN TO MORNING NURSE. PATIENT IS IN STABLE CONDITION.
--- NOTE | 2017-05-30 07:32 | NUR ---
RECEIVED BEDSIDE REPORT FROM DAYSI WARD. PT RESTING IN BED. AAOX4, NO S/S OF ACUTE DISTRESS. PT DENIES PAIN. IV SITE PATENT AND INTACT. DRESSING TO LEFT FOOT NOTED, DRY AND INTACT. PLAN OF CARE DISCUSSED WITH PT. PT VERBALIZED UNDERSTANDING. TELE IN PLACE. CALL LIGHT WITHIN REACH. SAFETY MEASURES ENSURED. WILL CONTINUE TO MONITOR.
[2017-05-30 07:40] VITALS: BP 124/75
[2017-05-30] MEDS ORDERED: POTASSIUM CHLORIDE 10 MEQ TABER PO SCH (08:00)
[2017-05-30] MEDS: LACTOBACILLUS RHAMNOSUS GG 1 EACH CAP PO SCH (08:13)
[2017-05-30] MEDS: ECOTRIN 81 MG TABEC PO SCH (08:14)
[2017-05-30] MEDS: glipiZIDE ER 5 MG TABER PO SCH (08:14)
[2017-05-30] MEDS: ASCORBIC ACID 500 MG TAB PO SCH ×2 (08:14→20:31)
[2017-05-30] MEDS: metFORMIN 500 MG TAB PO SCH ×2 (08:14→17:03)
[2017-05-30] MEDS: PANTOPRAZOLE 40 MG TABEC PO SCH (08:14)
--- NOTE | 2017-05-30 08:21 | NUR ---
AM MEDICATIONS GIVEN WITH EDUCATION. PT VERBALIZED UNDERSTANDING. WILL CONTINUE TO MONITOR.
[2017-05-30] MEDS: LEVOFLOXACIN 750 MG/D5W PREMIX 150 ML IV SCH (09:04)
--- NOTE | 2017-05-30 11:53 | NUR ---
PT RESTING IN BED. NO S/S OF ACUTE DISTRESS. PT DENIES PAIN. CALL LIGHT WITHIN REACH. SAFETY MEASURES ENSURED. WILL CONTINUE TO MONITOR.
--- NOTE | 2017-05-30 11:55 | NUR ---
Social Service Note: I called [facility] ext [phone], no answer, left a message for housing case manager Kira Brown regarding MD's order for home health.
[2017-05-30] MEDS: INSULIN LISPRO SLIDING SCALE 100 UNITS/ML VIAL SUBQ PRN (12:19)
--- NOTE | 2017-05-30 14:22 | NUR ---
PT RESTING IN BED. NO S/S OF ACUTE DISTRESS. PT DENIES PAIN. WILL CONTINUE TO MONITOR.
[2017-05-30 16:00] VITALS: BP 122/77
--- NOTE | 2017-05-30 16:32 | NUR ---
PT RESTING IN BED. NO S/S OF ACUTE DISTRESS. PT DENIES PAIN. CALL LIGHT WITHIN REACH. SAFETY MEASURES ENSURED. WILL CONTINUE TO MONITOR.
--- NOTE | 2017-05-30 19:14 | NUR ---
ENDORSED PLAN OF CARE TO NIGHT RN. PT REMAINS STABLE.
--- NOTE | 2017-05-30 19:15 | NUR ---
PATIENT REPORT RECEIVED FROM MORNING NURSE. PATIENT ASLEEP IN BED. NO SIGNS AND SYMPTOMS OF DISTRESS NOTED. IV SITE NOTED ON RIGHT FOREARM. IVF INFUSING WELL. LEFT FOOT WRAPPED IN BANDAGE. DRY AND INTACT. BED IN LOWEST POSITION, SIDE RAILS UP AND CALL LIGHT WITHIN REACH. WILL CONTINUE TO MONITOR.
[2017-05-30] MEDS: ACETAMINOPHEN 325 MG TAB PO PRN (19:40)
[2017-05-30] MEDS: ATORVASTATIN 20 MG TAB PO SCH (20:31)
[2017-05-30] MEDS: INSULIN DETEMIR 100 UNITS/ML 10 ML VIAL SUBQ SCH (20:39)
[2017-05-31] VITALS: BP 121/63
[2017-05-31] MEDS: NACL 0.9% 1,000 ML IV SCH ×3 (02:26→22:26)
[2017-05-31] MEDS: PIPER/TAZO 3.375GM/D5W PREMIX 50 ML IV SCH ×4 (06:11→23:12)
[2017-05-31] MEDS: BLOOD GLUCOSE MONITORING 1 DEV DEV FS SCH ×4 (06:30→20:37)
[2017-05-31 06:34] LABS: BASOPHILS # (AUTO) 0.2 K/uL (0.00-0.22); BASOPHILS % (AUTO) 1.4 % (0.0-2.0); EOSINOPHILS # (AUTO) 0.4 K/uL (0-0.4); EOSINOPHILS % (AUTO) 2.8 % (0.0-4.0); HEMATOCRIT 37.1 % (36-52); HEMOGLOBIN 12.4 g/dL (12.0-18.0); LYMPHOCYTES # (AUTO) 2.1 K/uL (2.0-11.5); LYMPHOCYTES % (AUTO) 15.4 % (20.5-51.1); MEAN CORPUSCULAR HEMOGLOBIN 28 pg (27-31); MEAN CORPUSCULAR HGB CONC 34 g/dL (33-37); MEAN CORPUSCULAR VOLUME 84 fL (80-94); MONOCYTES # (AUTO) 1.2 K/uL (0.8-1.0); NEUTROPHILS # (AUTO) 9.6 K/uL (1.8-7.7); NEUTROPHILS % (AUTO) 71.4 % (42.2-75.2); PLATELET COUNT (AUTO) 384 K/uL (140-450); RED CELL DISTRIBUTION WIDTH 11.7 % (11.6-13.7); WHITE BLOOD COUNT (AUTO) 13.5 K/uL (4.8-10.8)
[2017-05-31 06:44] LABS: ANION GAP 9.1 (8-16); CARBON DIOXIDE 28.5 mmol/L (21-32); CREATININE 0.9 mg/dL (0.7-1.3); POTASSIUM 3.6 mmol/L (3.5-5.1)
[2017-05-31 06:50] LABS: MAGNESIUM 1.7 mg/dL (1.8-2.4); PHOSPHORUS 3.6 mg/dL (2.5-4.9)
--- NOTE | 2017-05-31 07:35 | NUR ---
PATIENT REPORT GIVEN TO MORNING NURSE. PATIENT IS IN STABLE CONDITION.
--- NOTE | 2017-05-31 07:36 | NUR ---
RECEIVED PT ON BED AAOX4. NO SOB NOTED. NO C/O PAIN AT THIS TIME. IV TO RT FOREARM PATENT AND INTACT. CHEST, DIMINISHED AIR ENTRY TO THE BASES. ABDOMEN SOFT, BOWEL SOUNDS PRESENT. NO EDEMA NOTED. LEFT FOOT DRESSING DRY AND INTACT. INSTRUCTED PT TO CALL FOR ASSISTANCE, CALL LIGHT WITHIN REACH. PT VERBALIZED UNDERSTANDING.
[2017-05-31] MEDS ORDERED: MAG SULF 2000 MG/WATER PREMIX 50 ML IV ONE (07:40)
[2017-05-31 08:00] VITALS: BP 116/76
[2017-05-31] MEDS: metFORMIN 500 MG TAB PO SCH ×2 (08:00→17:25)
[2017-05-31] MEDS: glipiZIDE ER 5 MG TABER PO SCH (08:00)
[2017-05-31] MEDS: LACTOBACILLUS RHAMNOSUS GG 1 EACH CAP PO SCH (09:34)
[2017-05-31] MEDS: ASCORBIC ACID 500 MG TAB PO SCH ×2 (09:34→20:28)
[2017-05-31] MEDS: PANTOPRAZOLE 40 MG TABEC PO SCH (09:35)
[2017-05-31] MEDS: ECOTRIN 81 MG TABEC PO SCH (09:35)
[2017-05-31] MEDS: LEVOFLOXACIN 750 MG/D5W PREMIX 150 ML IV SCH (09:36)
--- NOTE | 2017-05-31 11:00 | NUR ---
05/31/17 RD FOLLOW-UP ASSESSMENT COMPLETED PLEASE REFER TO NUTRITION ASSESSMENT UNDER CARE ACTIVITY FOR ESTIMATED NUTRITIONAL NEEDS. 1. CONTINUE 60G CONSISTENT CARBOHYDRATE DIET 2. CONTINUE VITAMIN C 500 MG/DAY 3. RD TO FOLLOW-UP 3-5 DAYS, MODERATE RISK TRAVIS BEASLEY, [place]
--- NOTE | 2017-05-31 12:13 | NUR ---
ALKA FROM [facility] IN [place] CALLED, UPDATED WITH PT'S STATUS AND STATED THEY ACCEPTED PT. CRISTOBAL STATED SHE WILL CALL CASE MANAGEMENT TO LET THEM KNOW. Addendum: 05/31/17 at 1217 by Marylou Forde RN DISREGARD ABOVE NOTES. WRONG PT.
[2017-05-31] MEDS: ACETAMINOPHEN 325 MG TAB PO PRN (12:18)
[2017-05-31] MEDS: INSULIN LISPRO SLIDING SCALE 100 UNITS/ML VIAL SUBQ PRN ×3 (12:21→20:36)
--- NOTE | 2017-05-31 13:00 | NUR ---
PT HAS BEEN AMBULATING TO THE BATHROOM WITH STANDBY ASSIST. PT TOLERATED ACTIVITY WELL.
--- NOTE | 2017-05-31 14:08 | NUR ---
CHRISSY NOTE PATIENT INFORMATION FAXED TO [facility] / FAX# [phone], ATTN: DOMENICA #[phone] Addendum: 05/31/17 at 1606 by Otoniel Mena RN [facility] W/ PATIENT ONCE DISCHARGED FROM HOSPITAL.
--- NOTE | 2017-05-31 14:13 | NUR ---
CM NOTE CONCURRENT REVIEW FAXED TO [facility] (FAX# [phone], ATTN: CHERRY #[phone]) AND [facility] (FAX# [phone], ATTN: ERAN # ext [phone])
[2017-05-31 16:00] VITALS: BP 117/64
--- NOTE | 2017-05-31 18:49 | NUR ---
PT AWAKE, TALKING TO VISITORS AT THE BEDSIDE. NO SOB NOTED. NO COMPLAINTS MADE. DRESSING TO LT FOOT CLEAN DRY AND INTACT. WILL ENDORSE TO NEXT SHIFT NURSE FOR CONTINUITY OF CARE.
--- NOTE | 2017-05-31 19:18 | NUR ---
RECEIVED PT AWAKE PRESENTLY FINISHING HIS DINNER, DENIES ANY PAIN, IVF INFUSING WELL, LEFT LOWER LEG DRESSING DRY AND INTACT, NO SIGNS OF BLEEDING OR DRAINAGE NOTED, PLAN OF CARE DISCUSSED, SAFETY MEASURES IN PLACE, ENCOURAGE TO USE CALL LIGHT FOR ASSISTANCE, CALL LIGHT WITHIN REACH.
[2017-05-31] MEDS: ATORVASTATIN 20 MG TAB PO SCH (20:28)
[2017-05-31] MEDS: INSULIN DETEMIR 100 UNITS/ML 10 ML VIAL SUBQ SCH (20:36)
[2017-06-01] VITALS: BP 120/64
--- NOTE | 2017-06-01 | NUR ---
PT AWAKE WATCHING TV, DENIES ANY PAIN, VITAL SIGNS STABLE, IV ANTIBIOTIC INFUSING WELL, LEFT FOOT DRESSING DRY AND INTACT, ELEVATED WITH PILLOW, CONTINUE TO MONITOR CLOSELY.
[2017-06-01] MEDS: NACL 0.9% 1,000 ML IV SCH ×2 (05:02→08:26)
[2017-06-01] MEDS: PIPER/TAZO 3.375GM/D5W PREMIX 50 ML IV SCH (05:29)
--- NOTE | 2017-06-01 05:31 | NUR ---
PT DENIES ANY PAIN, DUE IVPB ZOSYN ADMINISTERED, BLOOD SUGAR CHECKED WITH 122 RESULT, WITH ORAL TEMP OF 99.5 AT THIS TIME, LEFT FOOT DRESSING DRY AND INTACT, MONITORED CLOSELY.
[2017-06-01 05:51] LABS: BASOPHILS # (AUTO) 0.2 K/uL (0.00-0.22); BASOPHILS % (AUTO) 1.5 % (0.0-2.0); EOSINOPHILS # (AUTO) 0.3 K/uL (0-0.4); EOSINOPHILS % (AUTO) 2.4 % (0.0-4.0); HEMATOCRIT 35.4 % (36-52); HEMOGLOBIN 12.1 g/dL (12.0-18.0); LYMPHOCYTES % (AUTO) 14.7 % (20.5-51.1); MEAN CORPUSCULAR HEMOGLOBIN 28 pg (27-31); MEAN CORPUSCULAR HGB CONC 34 g/dL (33-37); MEAN CORPUSCULAR VOLUME 83 fL (80-94); MONOCYTES % (AUTO) 7.3 % (1.7-9.3); NEUTROPHILS # (AUTO) 10.4 K/uL (1.8-7.7); NEUTROPHILS % (AUTO) 74.1 % (42.2-75.2); PLATELET COUNT (AUTO) 366 K/uL (140-450); RED BLOOD CELL COUNT(AUTO) 4.26 MIL/uL (4.20-6.10); RED CELL DISTRIBUTION WIDTH 11.6 % (11.6-13.7)
[2017-06-01 06:11] LABS: MAGNESIUM 1.7 mg/dL (1.8-2.4); PHOSPHORUS 3.4 mg/dL (2.5-4.9)
[2017-06-01 06:14] LABS: CREATININE 0.9 mg/dL (0.7-1.3)
[2017-06-01 06:18] LABS: ANION GAP 10.4 (8-16); POTASSIUM 3.4 mmol/L (3.5-5.1)
[2017-06-01] MEDS: BLOOD GLUCOSE MONITORING 1 DEV DEV FS SCH ×2 (06:36→11:30)
[2017-06-01 07:05] LABS: WHITE BLOOD COUNT (AUTO) 13.9 K/uL (4.8-10.8)
--- NOTE | 2017-06-01 07:20 | NUR ---
PT SLEEPING, NO SIGNS OF DISTRESS, REPORT GIVEN TO RN JOSE FOR CONTINUITY OF CARE.
[2017-06-01] MEDS ORDERED: POTASSIUM CHLORIDE 10 MEQ TABER PO SCH (07:30)
--- NOTE | 2017-06-01 07:30 | NUR ---
RECEIVED PT ON BED AAOX4. NO SOB NOTED. NO C/O PAIN AT THIS TIME. IV TO RT FOREARM PATENT AND INTACT. CHEST CLEAR. ABDOMEN SOFT, BOWEL SOUNDS PRESENT. NO EDEMA NOTED. LEFT FOOT DRESSING DRY AND INTACT, ELEVATED WITH PILLOW. INSTRUCTED PT TO CALL FOR ASSISTANCE, CALL LIGHT WITHIN REACH. PT VERBALIZED UNDERSTANDING.
[2017-06-01 08:00] VITALS: BP 134/70
[2017-06-01] MEDS: glipiZIDE ER 5 MG TABER PO SCH (08:13)
[2017-06-01] MEDS: ECOTRIN 81 MG TABEC PO SCH (08:13)
[2017-06-01] MEDS: ASCORBIC ACID 500 MG TAB PO SCH (08:13)
[2017-06-01] MEDS: PANTOPRAZOLE 40 MG TABEC PO SCH (08:13)
[2017-06-01] MEDS: LACTOBACILLUS RHAMNOSUS GG 1 EACH CAP PO SCH (08:13)
[2017-06-01] MEDS: metFORMIN 500 MG TAB PO SCH (08:14)
[2017-06-01] MEDS: LEVOFLOXACIN 750 MG/D5W PREMIX 150 ML IV SCH (08:29)
--- NOTE | 2017-06-01 10:30 | NUR ---
SPOKE TO PRIMARY RN AND WAS TOLD THE DRY CURE WORKER CONTINUE TO VISIT AND CHANGE DRESSING , BUT NOT TODAY. AND RES. FROM CARLYLE MAHAJAN WILL CONTACT DRY CURE WORKER FOR FOLLOW UP PLAN. PT IS TO BE DISCHARGED AND PLAN FOR POSSIBLE AMPUTATION.
--- NOTE | 2017-06-01 10:56 | NUR ---
CM NOTE CONCURRENT REVIEW FAXED TO [facility] (FAX# [phone], ATTN: CHERRY #[phone]) SPOKE WITH CHRISSY BARILLAS OF [facility] (PH# ext [phone]) AND PER CHRISSY BARILLAS, FOR [facility] AUTH# [id number]
[2017-06-01] MEDS: INSULIN LISPRO SLIDING SCALE 100 UNITS/ML VIAL SUBQ PRN (12:39)
[2017-06-01] MEDS ORDERED: LEVEMIR SUBQ (12:59)
[2017-06-01] MEDS ORDERED: BLOO1STR10 FS (12:59)
[2017-06-01] MEDS ORDERED: AMPI500C49 PO (12:59)
[2017-06-01] MEDS ORDERED: LACT1.4C PO (12:59)
[2017-06-01] MEDS ORDERED: LEVO750T2 PO (12:59)
[2017-06-01] MEDS ORDERED: VITC500 PO (12:59)
[2017-06-01] MEDS ORDERED: INFLUENZA VIRUS VACCINE QUAD 0.5 ML SYR IMVAC SCH (13:00)
[2017-06-01] MEDS ORDERED: PNEUMOCOCCAL VACCINE 23 MCG/0.5 ML VIAL IMVAC SCH (13:00)
--- NOTE | 2017-06-01 13:50 | NUR ---
DISCHARGE PHOTO TAKEN AND DOCUMENTED.
--- NOTE | 2017-06-01 14:06 | NUR ---
CM NOTE SPOKE WITH DR Daniel EDMONDS WHO SAID THAT HER PLAN IS TO DISCHARGE PATIENT TODAY WITH HOME HEALTH. SPOKE WITH ARTEMIO OF [facility] TO INFORM THEM OF THE PLAN TO DISCHARGE PATIENT FROM THE HOSPITAL TODAY. Addendum: 06/01/17 at 1412 by Ronda Restrepo CM [facility]# [phone] Addendum: 06/01/17 at 1437 by Ronda Restrepo CM HOME HEALTH ORDER FAXED TO [facility] FAX# [phone]
--- NOTE | 2017-06-01 15:30 | NUR ---
DISCHARGE INSTRUCTIONS GIVEN TO PT WHICH VERBALIZED FULL UNDERSTANDING OF THE INSTRUCTIONS GIVEN AND THE NEED TO FOLLOW UP WITH PCP WITHIN 7 DAYS. PER PT HE ALREADY GOT A CALL FOR [facility].
--- NOTE | 2017-06-01 15:35 | NUR ---
ARM BANDS AND IV REMOVED, CANNULA TIP INTACT. PT VERBALIZED FULL UNDERSTANDING OF THE INSTRUCTIONS GIVEN AND THE NEE D TO FOLLOW UP WITH PCP WITHIN 7 DAYS.
--- NOTE | 2017-06-01 15:50 | NUR ---
PT WHEELED OUT TO THE PARKING LOT IN STABLE CONDITION. NO COMPLAINTS MADE. DRESSING TO LEFT FOOT DRY AND INTACT. PT IS DISCHARGE HOME WITH SON.
== END 2017-06-01 15:50 | disposition home health service (06) | DRG 344 ==
LOC: MED 16:01 → MTU 18:29 → UNDOADMIN 18:29 → MTU 18:55
PROVIDERS: ADMIT Family Medicine; ATTEND Family Medicine
PROC: 0JBR0ZZ Excision of Left Foot Subcutaneous Tissue and Fascia, Open Approach (ICD-10-PCS; principal; 2017-05-28)
DX: M72.6 Necrotizing fasciitis (principal); I96 Gangrene, not elsewhere classified; E11.52 Type 2 diabetes mellitus with diabetic peripheral angiopathy with gangrene; D68.59 Other primary thrombophilia; E11.40 Type 2 diabetes mellitus with diabetic neuropathy, unspecified; E44.0 Moderate protein-calorie malnutrition; E11.65 Type 2 diabetes mellitus with hyperglycemia; E11.621 Type 2 diabetes mellitus with foot ulcer; D64.9 Anemia, unspecified; E87.6 Hypokalemia; M62.50 Muscle wasting and atrophy, not elsewhere classified, unspecified site; E87.8 Other disorders of electrolyte and fluid balance, not elsewhere classified; L03.116 Cellulitis of left lower limb; L97.529 Non-pressure chronic ulcer of other part of left foot with unspecified severity; E87.1 Hypo-osmolality and hyponatremia; E83.42 Hypomagnesemia; Z79.82 Long term (current) use of aspirin; Z79.84 Long term (current) use of oral hypoglycemic drugs; Z83.3 Family history of diabetes mellitus; Z82.3 Family history of stroke; Z68.20 Body mass index [BMI] 20.0-20.9, adult
CPT/HCPCS: 36415; 71010; 73630; 80048; 80053; 80305; 81001; 82150; 82948; 83036; 83605; 83690; 83735; 83880; 84100; 84436; 84439; 84443; 84479; 85025; 85610; 85730; 87040; 87070; 87075; 87081; 87186; 87205; 90658; 90732; 93926; 93970; 96365; 96367; 99285; J1170; J1644; J1815; J1956; J2001; J2270; J2405; J2543; J2765; J3475; J3480; J3490; J7030; J7060; Q0092